=== PATIENT | female | born 1990 | race Caucasian/White ===

== ENCOUNTER 2017-03-31 01:05 | Emergency (ER) | payer OTHER ==
[2017-03-31] MEDS ORDERED: Ibuprofen 800 MG Tab PO ONE (01:50)
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
[2017-03-31 04:10] VITALS: BP 132/68
--- NOTE | 2017-03-31 15:25 | CR ---
EXAM DATE: 03/31/17 PATIENT'S AGE: 27 Patient: SHERIF BIGGS Facility: [place], [place] Site . Site : 1990 Study: XRay Knee Left [id number] 2:59:35 AM Ordering Physician: Jamal Kimball Final Report: Indication: Bruising and swelling status post injury 3 days ago Technique: Three views left knee Comparison: None Findings: Bones: Alignment is normal. No fractures or bone lesions. Joint spaces: Unremarkable. Soft tissues: Unremarkable. Impression: Negative. Dictated by Janey Araujo MD @ Mar 31 2017 3:13AM (Electronic Signature) Report Signed by Proxy. CHILO
== END 2017-03-31 03:24 | disposition home or self-care (01) ==
LOC: MW.ED 01:05
DX: S83.92XA Sprain of unspecified site of left knee, initial encounter (principal); S80.02XA Contusion of left knee, initial encounter; Z91.09 Other allergy status, other than to drugs and biological substances; Z79.899 Other long term (current) drug therapy; F41.9 Anxiety disorder, unspecified; F32.9 Major depressive disorder, single episode, unspecified; Z87.891 Personal history of nicotine dependence; V86.59XA Driver of other special all-terrain or other off-road motor vehicle injured in nontraffic accident, initial encounter
CPT/HCPCS: 73562; 99283; A9270; 99282

== ENCOUNTER 2023-07-12 18:55 | Emergency (ER) | payer SELFPAY ==
[2023-07-12] MEDS ORDERED: Sodium Chloride 0.9% 10 ML Syringe FLUSH PRN (19:07)
[2023-07-12] MEDS ORDERED: Sodium Chloride 0.9% 2.5 ML Syringe FLUSH PRN (19:07)
[2023-07-12] MEDS ORDERED: Sodium Chloride 0.9% 1,000 ML IV ONE (19:10)
[2023-07-12] MEDS ORDERED: Ondansetron 4 MG/2 ML SDV ONE (19:21)
[2023-07-12] MEDS ORDERED: Morphine 4 MG/ML Syringe ONE (19:21)
[2023-07-12] MEDS ORDERED: Diphtheria,Pertussis(Acell),Tetanus Vaccine 0.5 ML Syringe IM ONE (19:32)
[2023-07-12] MEDS ORDERED: Morphine 4 MG/ML Syringe IVPUSH STA (19:35)
[2023-07-12] MEDS ORDERED: Ondansetron 4 MG/2 ML SDV IVPUSH STA (19:35)
[2023-07-12] MEDS ORDERED: Bacitracin Oint 1 GM U/D Packet TOP ONE (20:04)
[2023-07-12 20:35] LABS: BASOPHILS ABSOLUTE AUTO 0.05 K/uL (0.00-0.20); BASOPHILS PERCENT AUTO 0.4 % (0.0-1.0); EOSINOPHILS ABSOLUTE AUTO 0.07 K/uL (0.00-0.45); EOSINOPHILS PERCENT AUTO 0.5 % (0.0-6.0); HEMATOCRIT 33.1 % (37.0-47.0); HEMOGLOBIN 11.2 g/dL (12.0-16.0); IMMATURE GRAN ABSOLUTE AUTO 0.05 K/uL (0.00-0.05); IMMATURE GRAN PERCENT AUTO 0.4 % (0.0-0.4); LYMPHOCYTES ABSOLUTE AUTO 2.65 K/uL (1.00-4.80); MEAN CORPUSCULAR HEMOGLOBIN 28.9 pg (28.0-32.0); MEAN CORPUSCULAR HGB CONC 33.8 g/dL (32.0-36.0); MEAN CORPUSCULAR VOLUME 85.3 fL (83.0-99.0); MEAN PLATELET VOLUME 10.4 fL (9.4-12.3); MONOCYTES ABSOLUTE AUTO 0.86 K/uL (0.00-0.80); MONOCYTES PERCENT AUTO 6.2 % (0.0-8.0); NEUTROPHILS ABSOLUTE AUTO 10.29 K/uL (1.80-7.70); NEUTROPHILS PERCENT AUTO 73.5 % (41.0-71.0); PLATELET COUNT,PLT 328 K/uL (150-400); RED BLOOD CELL COUNT 3.88 M/uL (4.10-5.30); WHITE BLOOD CELL COUNT,WBC 13.97 K/uL (3.9-11.3)
[2023-07-12 20:50] LABS: INR 1.05 (0.86-1.11)
[2023-07-12 20:58] LABS: ALANINE AMINOTRANSFERASE,ALT 30 IU/L (14-63); ALBUMIN 3.7 g/dL (3.4-5.0); ALKALINE PHOSPHATASE 71 U/L (46-116); ASPARTATE AMNIOTRANSFERASE,AST 19 IU/L (15-37); BILIRUBIN TOTAL 0.5 mg/dL (0.2-1.0); BLOOD UREA NITROGEN,BUN 13 mg/dL (7.0-18.0); CALCIUM 8.8 mg/dL (8.5-10.1); CARBON DIOXIDE,CO2 25.9 mmol/L (21.0-32.0); CHLORIDE,CL 104 mmol/L (98-107); CREATINE KINASE,CK 63 U/L (26-308); CREATININE 0.8 mg/dL (0.6-1.0); EST CRCL DRUG DOSING (CG) 74.77 mL/min; ETHANOL BLOOD MEDICAL <3 mg/dL; GLUCOSE RANDOM 112 mg/dL (74-106); LIPASE 23 U/L (16-77); POTASSIUM,K 3.9 mmol/L (3.5-5.1); PROTEIN TOTAL,TP 7.4 g/dL (6.4-8.2); SODIUM,NA 139 mmol/L (136-145)
[2023-07-12 20:59] LABS: ESTIMATED GFR 99 mL/min (>60)
[2023-07-12 21:24] LABS: AMPHETAMINES SCREEN, URINE NEGATIVE (CUTOFF=500); BARBITURATE SCREEN,URINE NEGATIVE (CUTOFF=200); BENZODIAZEPINES SCREEN,URINE NEGATIVE (CUTOFF=150); BUPRENORPHINE SCREEN,URINE NEGATIVE (CUTOFF=10); METHADONE SCREEN, URINE NEGATIVE (CUTOFF=200); METHAMPHETAMINES SCREEN, URINE NEGATIVE (CUTOFF=500); OXYCODONE SCREEN,URINE NEGATIVE (CUT0FF=100); PCP SCREEN,URINE NEGATIVE (CUTOFF=25); THC SCREEN,URINE 20 NG/ML NEGATIVE (CUTOFF=50)
[2023-07-12] MEDS ORDERED: Ketorolac 30 MG/ML SDV IVPUSH ONE (21:52)
[2023-07-12] MEDS ORDERED: Acetaminophen/HYDROcodone 325-5 MG Tab PO ONE (22:31)
[2023-07-12 22:50] VITALS: BP 132/95; PULSE 94
== END 2023-07-12 22:51 | disposition home or self-care (01) ==
LOC: MW.ED 18:55
DX: S93.401A Sprain of unspecified ligament of right ankle, initial encounter (principal); S40.211A Abrasion of right shoulder, initial encounter; S30.810A Abrasion of lower back and pelvis, initial encounter; Z23 Encounter for immunization; Z91.09 Other allergy status, other than to drugs and biological substances; V86.56XA Driver of dirt bike or motor/cross bike injured in nontraffic accident, initial encounter
CPT/HCPCS: 36415; 70450; 71260; 72125; 73030; 73552; 73590; 73600; 74177; 80053; 80305; 80307; 81025; 82550; 83690; 85025; 85610; 90471; 90715; 96361; 96374; 96375; 99284; A9270; J1885; J2270; J2405; J3490; J7030